=== PATIENT | female | born 1965 | race Caucasian/White ===

== ENCOUNTER 2016-05-25 21:25 | Emergency (ER) | payer OTHER ==
[2016-05-25 21:36] VITALS: TEMP 97.9
[2016-05-25 22:17] LABS: % IMMATURE GRANULYOCYTES 0.2 % (0.0-1.1); ABSOLUTE IMMATURE GRANULOCYTES 0.01 10^3/uL (0.00-0.10); ADD DIFF? NO; ADD MORPH? NO; ADD SCAN? NO; ATYPICAL LYMPHOCYTE FLAG 10 (0-99); FRAGMENT RBC FLAG 0 (0-99); HEMATOCRIT 43.9 % (38.0-47.0); HEMOGLOBIN 14.7 g/dL (12.6-16.3); LEFT SHIFT FLG 0 (0-99); LIPEMIA HEMOLYSIS FLAG 80 (0-99); MEAN CELL HEMOGLOBIN 32.2 pg (27.9-34.1); MEAN CELL HEMOGLOBIN CONCENTR. 33.5 g/dL (32.4-36.7); MEAN CELL VOLUME 96.3 fL (81.5-99.8); MEAN PLATELET VOLUME 11.1 fL (8.7-11.7); PLATELET CLUMPS FLAG 0 (0-99); PLATELET COUNT 213 10^3/uL (150-400); RED BLOOD CELL COUNT 4.56 10^6/uL (4.18-5.33); RED CELL DISTRIBUTION WIDTH 13.8 % (11.5-15.2)
--- NOTE | 2016-05-25 22:18 | EDPHY ---
H & P Time Seen by Provider: 05/25/16 21:43 HPI/ROS: CHIEF COMPLAINT: Anxious, consumed marijuana edibles HISTORY OF PRESENT ILLNESS: 50-year-old female who is visiting from [place] presents to the emergency department by ambulance feeling extremely anxious. Patient tells me at 6:30 a.m. this evening she consume marijuana edibles and approximately 2 hours later became extremely anxious. She developed burning in her chest and feeling very nauseous. She felt like her face was swelling. EMS was contacted and they gave her Zofran in route to the hospital. The patient was feeling much better although she now states that her symptoms are recurring. She is concerned that she is having a stroke. She smokes marijuana 3 times per year. She denies any other substance abuse. She did try taking Xanax without relief. She has a history of anxiety and is prescribed Zoloft which she has taken for years. REVIEW OF SYSTEMS: Constitutional: No fever, no chills. Eyes: No double or blurry vision. ENT: No sore throat. Respiratory: No cough, no shortness of breath. Cardiac: Chest pain as above. Gastrointestinal: No abdominal pain, vomiting or diarrhea. Genitourinary: No dysuria. Musculoskeletal: No neck or back pain. Skin: No rashes. Neurological: No headache. Past Medical/Surgical History: Anxiety Social History: Visiting from [place], [place] Smoking Status: Never smoked Physical Exam: General Appearance: Alert, anxious. Daughter at bedside. Eyes: Pupils equal and round. Extraocular motions are all intact. ENT: Mouth: Mucous membranes dry. Respiratory: No wheezing, rhonchi, or rales, lungs are clear to auscultation. Cardiovascular: Regular rate and rhythm. Gastrointestinal: Abdomen is soft and nontender, no masses, no rebound or guarding, bowel sounds normal. Neurological: Alert and oriented x 3, cranial nerves II through XII grossly intact Skin: Warm and dry, no rashes. Musculoskeletal: Nontender to palpate along the cervical, thoracic or lumbar spine. Neck is supple. Extremities: Full range of motion and no peripheral edema. Psychiatric: Patient is oriented X 3, there is no agitation. Constitutional: Initial Vital Signs Temperature (C) 36.6 C 05/25/16 21:33 Heart Rate 82 05/25/16 21:33 Respiratory Rate 16 05/25/16 21:33 Blood Pressure 135/81 H 02/23/17 21:33 O2 Sat (%) 96 05/25/16 21:33 O2 Delivery Mode Room Air Allergies/Adverse Reactions: No Known Allergies Allergy (Unverified 05/25/16 21:36) Home Medications: Medication Instructions Recorded Ibuprofen/Pseudoephedrine HCl 05/25/16 [ADVIL COLD-SINUS LIQUI-GELS] Xanax 05/25/16 Zithromax 05/25/16 Medical Decision Making - Diagnostics EKG Interpretation: EKG reveals normal sinus rhythm. This is reviewed by Dr. Parth Rodrigez. See interpretation in trace master. ED Course/Re-evaluation: 50-year-old female presents feeling extremely anxious and having burning in her chest. She admits to using a bowl marijuana earlier this evening. Laboratory studies are all within normal limits. Troponin was normal. Her EKG is unremarkable. She was given Zofran and was feeling better. She was monitored throughout her stay in the emergency department for nearly 2 hours and is comfortable being discharged home. She feels that all of her symptoms have completely resolved. She was instructed to return if she developed chest pain, difficulty breathing, or if she felt worse in any way. Differential Diagnosis: Including but not limited to marijuana ingestion, adverse reaction to medication , electrolyte abnormality, myocardial infarction, CVA - Data Points Laboratory Results: Laboratory Results 05/25/16 21:15 05/25/16 21:15 05/25/16 05/25/16 21:15 21:15 WBC 4.99 10^3/uL 10^3/uL (3.80-9.50) RBC 4.56 10^6/uL 10^6/uL (4.18-5.33) Hgb 14.7 g/dL g/dL (12.6-16.3) Hct 43.9 % % (38.0-47.0) MCV 96.3 fL fL (81.5-99.8) MCH 32.2 pg pg (27.9-34.1) MCHC 33.5 g/dL g/dL (32.4-36.7) RDW 13.8 % % (11.5-15.2) Plt Count 213 10^3/uL 10^3/uL (150-400) MPV 11.1 fL fL (8.7-11.7) Neut % (Auto) 38.7 % L % (39.3-74.2) Lymph % (Auto) 52.3 % H % (15.0-45.0) [place] % (Auto) 5.8 % % (4.5-13.0) Eos % (Auto) 2.2 % % (0.6-7.6) Baso % (Auto) 0.8 % % (0.3-1.7) Nucleat RBC Rel Count 0.0 % % (0.0-0.2) Absolute Neuts (auto) 1.93 10^3/uL 10^3/uL (1.70-6.50) Absolute Lymphs (auto) 2.61 10^3/uL 10^3/uL (1.00-3.00) Absolute Monos (auto) 0.29 10^3/uL L 10^3/uL (0.30-0.80) Absolute Eos (auto) 0.11 10^3/uL 10^3/uL (0.03-0.40) Absolute Basos (auto) 0.04 10^3/uL 10^3/uL (0.02-0.10) Absolute Nucleated RBC 0.00 10^3/uL 10^3/uL (0-0.01) Immature Gran % 0.2 % % (0.0-1.1) Immature Gran # 0.01 10^3/uL 10^3/uL (0.00-0.10) Sodium 142 mEq/L mEq/L (134-144) Potassium 3.5 mEq/L mEq/L (3.5-5.2) Chloride 101 mEq/L mEq/L (97-110) Carbon Dioxide 28 mEq/l mEq/l (22-31) Anion Gap 13 mEq/L mEq/L (8-16) BUN 15 mg/dL mg/dL (7-23) Creatinine 0.7 mg/dL mg/dL (0.6-1.0) Estimated GFR > 60 Glucose 124 mg/dL H mg/dL (70-100) Calcium 9.6 mg/dL mg/dL (8.5-10.4) Troponin I < 0.012 ng/mL ng/mL (0-0.034) Departure - Departure Disposition: Home, Routine, Self-Care Clinical Impression: Marijuana ingestion Condition: Good Instructions: Cannabis Abuse (ED), Anxiety (ED) Additional Instructions: Return to the emergency department if you develop any recurring chest pain, vomiting, altered mental status, or if you feel worse in any way. Referrals: Yaz Souza MD [Medical Doctor] - 1 day, if not improved (Primary care provider nutritional yeast supervisor)
[2016-05-25 22:31] LABS: ANION GAP 13 mEq/L (8-16); CALCIUM 9.6 mg/dL (8.5-10.4); CARBON DIOXIDE 28 mEq/l (22-31); CHLORIDE 101 mEq/L (97-110); CREATININE 0.7 mg/dL (0.6-1.0); GLOMERULAR FILTRATION RATE > 60; GLUCOSE 124 mg/dL (70-100); POTASSIUM 3.5 mEq/L (3.5-5.2); SODIUM 142 mEq/L (134-144)
--- NOTE | 2016-05-25 22:41 | CPEKG ---
Heart Rate: 80 RR Interval: 750 P-R Interval: 172 QRSD Interval: 82 QT Interval: 396 QTC Interval: 457 P [place]: 66 QRS [place]: 64 T Wave [place]: 47 EKG Severity - NORMAL ECG - EKG Impression: SINUS RHYTHM Electronically Signed By: Dillan Gaston 26-May-2016 10:02:43
[2016-05-25 22:44] LABS: TROPONIN I < 0.012 ng/mL (0-0.034)
[2016-05-25 23:25] VITALS: BP 98/48; PULSE 73; RESP 14; O2SAT 94
== END 2016-05-25 23:25 | disposition home or self-care (01) ==
DX: T40.7X1A Poisoning by cannabis (derivatives), accidental (unintentional), initial encounter (principal)